=== PATIENT | male | born 1980 | race Caucasian/White ===

== ENCOUNTER 2020-11-26 06:06 | Day surgery (SDC) | payer OTHER, SELFPAY ==
[~2020-11-26] VITALS: Ht 180.3 cm; Wt 86.2 kg
[2020-11-26 06:43] LABS: EOSINOPHILS # (AUTO) 0.2 K/uL (0-0.4); EOSINOPHILS % (AUTO) 3.7 % (0.0-4.0); HEMATOCRIT 45.8 % (36-52); HEMOGLOBIN 15.6 g/dL (12.0-18.0); LYMPHOCYTES # (AUTO) 1.6 K/uL (2.0-11.5); LYMPHOCYTES % (AUTO) 33.5 % (20.5-51.1); MEAN CORPUSCULAR HEMOGLOBIN 31 pg (27-31); MEAN CORPUSCULAR HGB CONC 34 g/dL (33-37); MONOCYTES # (AUTO) 0.5 K/uL (0.8-1.0); MONOCYTES % (AUTO) 10.4 % (1.7-9.3); NEUTROPHILS # (AUTO) 2.4 K/uL (1.8-7.7); NEUTROPHILS % (AUTO) 51.4 % (42.2-75.2); PLATELET COUNT (AUTO) 251 K/uL (140-450); RED BLOOD CELL COUNT(AUTO) 4.97 MIL/uL (4.20-6.10); RED CELL DISTRIBUTION WIDTH 12.9 % (11.6-13.7); WHITE BLOOD COUNT (AUTO) 4.7 K/uL (4.8-10.8)
[2020-11-26 07:01] LABS: ANION GAP 16.2 (8-16); CARBON DIOXIDE 25.9 mmol/L (21-32); CREATININE 0.7 mg/dL (0.6-1.3); POTASSIUM 4.1 mmol/L (3.5-5.1); TOTAL BILIRUBIN 0.7 mg/dL (0.0-1.0)
[2020-11-26] MEDS ORDERED: LACTATED RINGERS 1,000 ML IV SCH (07:45)
[2020-11-26] MEDS ORDERED: MEPERIDINE 25 MG/ML SYR IVP PRN (07:45)
[2020-11-26] MEDS ORDERED: HYDROmorphone 1 MG/ML AMP IVP PRN (07:45)
[2020-11-26] MEDS ORDERED: ONDANSETRON 4 MG/2 ML VIAL IVP PRN (07:45)
[2020-11-26] MEDS ORDERED: METOCLOPRAMIDE 10 MG/2 ML INJ VIAL ONE (07:50)
[2020-11-26] MEDS ORDERED: ONDANSETRON 4 MG/2 ML VIAL ONE (07:50)
[2020-11-26] MEDS ORDERED: DEXAMETHASONE 4 MG/ML VIAL ONE (07:50)
[2020-11-26] MEDS ORDERED: PROPOFOL 200 MG/20 ML VIAL IV ONE (07:50)
[2020-11-26] MEDS ORDERED: LIDOCAINE 2% 100 MG/5 ML SYR IVP ONE (07:50)
== END 2020-11-26 09:45 | disposition short-term general hospital (02) ==
LOC: MDS 06:06 → MFCC 06:12 → MDS 09:45
PROVIDERS: ATTEND Internal Medicine Gastroenterology
DX: Z46.89 Encounter for fitting and adjustment of other specified devices (principal); Z90.49 Acquired absence of other specified parts of digestive tract
CPT/HCPCS: 36415; 43275; 71045; 76000; 80053; 85025; 87426; J1100; J2001; J2405; J2704; J2765; J7120